=== PATIENT | male | born 1990 | race Caucasian/White ===

== ENCOUNTER 2018-05-24 13:31 | Emergency (ER) | payer OTHER ==
[~2018-05-24] VITALS: Ht 165.1 cm; Wt 74.8 kg
[2018-05-24 14:47] VITALS: BP 117/78
== END 2018-05-24 14:48 | disposition home or self-care (01) ==
LOC: M.ERS 13:31
DX: S01.01XA Laceration without foreign body of scalp, initial encounter (principal); W22.8XXA Striking against or struck by other objects, initial encounter; Y93.89 Activity, other specified; Y92.89 Other specified places as the place of occurrence of the external cause; Y99.8 Other external cause status

== ENCOUNTER 2018-06-04 16:47 | Emergency (ER) | payer OTHER ==
[~2018-06-04] VITALS: Ht 165.1 cm; Wt 74.8 kg
[2018-06-04 16:54] VITALS: BP 128/89
== END 2018-06-04 17:49 | disposition home or self-care (01) ==
LOC: M.ERS 16:47
DX: S06.0X0D Concussion without loss of consciousness, subsequent encounter (principal); S01.81XD Laceration without foreign body of other part of head, subsequent encounter; X58.XXXD Exposure to other specified factors, subsequent encounter